=== PATIENT | female | born 1980 | race Caucasian/White ===

== ENCOUNTER 2020-10-21 21:41 | Emergency (ER) | payer OTHER ==
[~2020-10-21 21:41] MED LIST: BENTYL10 MG PO; CYMBALTA20 MG PO; LOESTRIN FE 1-1 EACH PO; METFORMIN HCL500 MG PO; PHENERGAN25 M1 PO; ROBAXIN500 MG PO; TYLENOL ARTHRI650 MG PO; ZOFRAN4 MG PO
== END 2020-10-21 23:34 | disposition home or self-care (01) ==
LOC: FER 21:41
DX: S00.83XA Contusion of other part of head, initial encounter (principal); V49.60XA Unspecified car occupant injured in collision with unspecified motor vehicles in traffic accident, initial encounter; Y92.410 Unspecified street and highway as the place of occurrence of the external cause
CPT/HCPCS: 70450